=== PATIENT | male | born 1955 | race Caucasian/White ===

== ENCOUNTER 2019-06-25 08:43 | Outpatient (CLI) | payer OTHER ==
[~2019-06-25 08:43] MED LIST: KLONOPIN0.5 MG/TAB PO; LEXAPRO20 MG PO
== END 2019-06-25 08:50 | disposition home or self-care (01) ==
LOC: LAB 08:43
DX: E11.9 Type 2 diabetes mellitus without complications (principal); I10 Essential (primary) hypertension; E03.8 Other specified hypothyroidism; E78.2 Mixed hyperlipidemia; N40.0 Benign prostatic hyperplasia without lower urinary tract symptoms

== ENCOUNTER 2019-08-09 17:58 | Emergency (ER) | payer OTHER ==
[~2019-08-09] VITALS: Ht 175.3 cm; Wt 90.7 kg
== END 2019-08-09 20:06 | disposition home or self-care (01) ==
LOC: ER 17:58
DX: J06.9 Acute upper respiratory infection, unspecified (principal)

== ENCOUNTER 2020-07-30 06:20 | Day surgery (SDC) | payer OTHER | END 2020-07-30 12:40 | disposition home or self-care (01) | LOC: AMB-ENDOS 06:20 | PROVIDERS: ATTEND Colon & Rectal Surgery | DX: C19 Malignant neoplasm of rectosigmoid junction (principal); K64.1 Second degree hemorrhoids; Z12.11 Encounter for screening for malignant neoplasm of colon; Z20.822 Contact with and (suspected) exposure to COVID-19 ==

== ENCOUNTER 2020-08-05 18:36 | Emergency (ER) | payer OTHER ==
[~2020-08-05] VITALS: Ht 175.3 cm; Wt 83.9 kg
[2020-08-05] MEDS ORDERED: LORAZEPAM1 MG PO (18:48)
== END 2020-08-05 22:23 | disposition home or self-care (01) ==
LOC: ER 18:36
DX: R07.89 Other chest pain (principal); T50.Z95A Adverse effect of other vaccines and biological substances, initial encounter

== ENCOUNTER 2020-08-29 05:58 | Emergency (ER) | payer OTHER ==
[~2020-08-29] VITALS: Ht 175.3 cm; Wt 83.9 kg
[~2020-08-29 05:58] MED LIST changes: +LORAZEPAM1 MG PO
[2020-08-29] MEDS ORDERED: SYNTHROID50 MCG (06:09)
== END 2020-08-29 14:57 | disposition home or self-care (01) ==
LOC: ER 05:58
DX: N39.0 Urinary tract infection, site not specified (principal); K64.8 Other hemorrhoids; K57.30 Diverticulosis of large intestine without perforation or abscess without bleeding; B96.29 Other Escherichia coli [E. coli] as the cause of diseases classified elsewhere; R31.29 Other microscopic hematuria; R10.32 Left lower quadrant pain

== ENCOUNTER 2020-09-02 11:15 | Inpatient (IN) | payer OTHER ==
[~2020-09-02] VITALS: Ht 175.3 cm; Wt 83.9 kg
[~2020-09-02 11:15] MED LIST changes: +SYNTHROID50 MCG
[2020-09-02] MEDS ORDERED: LORAZEPAM0.5 MG PO (14:33)
[2020-09-07] MEDS ORDERED: PANTOPRAZOLE SO40 MG (08:19)
[2020-09-07] MEDS ORDERED: LEVOFLOXACIN750 MG (08:21)
== END 2020-09-10 17:54 | disposition home or self-care (01) | DRG 331 ==
LOC: ADM 11:15 → EDSTATUS 11:15 → O/R 09-07 06:15 → SURG 09-07 06:15 → SURH 09-07 11:15 → SURG 09-07 13:24
PROVIDERS: ADMIT Colon & Rectal Surgery; ATTEND Colon & Rectal Surgery
PROC: 0DBN4ZZ Excision of Sigmoid Colon, Percutaneous Endoscopic Approach (ICD-10-PCS; 2020-09-07)
PROC: 07BB4ZZ Excision of Mesenteric Lymphatic, Percutaneous Endoscopic Approach (ICD-10-PCS; 2020-09-07)
PROC: 0DTP4ZZ Resection of Rectum, Percutaneous Endoscopic Approach (ICD-10-PCS; principal; 2020-09-07 13:15)
DX: C19 Malignant neoplasm of rectosigmoid junction (principal)

== ENCOUNTER 2020-10-08 06:56 | Outpatient (CLI) | payer OTHER ==
[~2020-10-08 06:56] MED LIST changes: +LEVOFLOXACIN750 MG; +LORAZEPAM0.5 MG PO; +PANTOPRAZOLE SO40 MG
== END 2020-10-08 07:13 | disposition home or self-care (01) ==
LOC: LAB 06:56
PROVIDERS: ATTEND Internal Medicine
DX: C19 Malignant neoplasm of rectosigmoid junction (principal); C61 Malignant neoplasm of prostate

== ENCOUNTER 2020-10-08 08:42 | Outpatient (CLI) | payer OTHER | END 2020-10-08 09:05 | disposition home or self-care (01) | LOC: TOM 08:42 | PROVIDERS: ATTEND Internal Medicine | DX: C19 Malignant neoplasm of rectosigmoid junction (principal) ==

== ENCOUNTER 2020-11-02 07:53 | Outpatient (CLI) | payer OTHER | END 2020-11-02 07:55 | disposition home or self-care (01) | LOC: SONOGRAMA 07:53 → MAMO-SONO 08:30 | PROVIDERS: ATTEND Internal Medicine | DX: E04.1 Nontoxic single thyroid nodule (principal) ==

== ENCOUNTER → 2020-11-08 08:51 | Outpatient (CLI) | payer OTHER | END | disposition home or self-care (01) | LOC: LAB 08:51 | PROVIDERS: ATTEND Internal Medicine | DX: C19 Malignant neoplasm of rectosigmoid junction (principal); N40.1 Benign prostatic hyperplasia with lower urinary tract symptoms ==

== ENCOUNTER 2020-12-02 09:39 | Outpatient (CLI) | payer OTHER | END 2020-12-02 09:41 | disposition home or self-care (01) | LOC: SONOGRAMA 09:39 | PROVIDERS: ATTEND Pathology Anatomic Pathology & Clinical Pathology | DX: E04.1 Nontoxic single thyroid nodule (principal); E07.89 Other specified disorders of thyroid; D34 Benign neoplasm of thyroid gland ==

== ENCOUNTER 2021-07-06 10:24 | Outpatient (CLI) | payer OTHER | END 2021-07-06 10:35 | disposition home or self-care (01) | LOC: SONOGRAMA 10:24 | PROVIDERS: ATTEND Internal Medicine | DX: E04.1 Nontoxic single thyroid nodule (principal) ==

== ENCOUNTER 2021-10-23 11:56 | Emergency (ER) | payer OTHER ==
[~2021-10-23] VITALS: Ht 175.3 cm; Wt 88.5 kg
[2021-10-23] MEDS ORDERED: ATIVAN1 M1 PO (12:36)
== END 2021-10-23 16:29 | disposition home or self-care (01) ==
LOC: ER 11:56
DX: U07.1 COVID-19 (principal)

== ENCOUNTER 2025-01-11 10:28 | Emergency (ER) | payer OTHER ==
[~2025-01-11] VITALS: Ht 175.3 cm; Wt 88.5 kg
[~2025-01-11 10:28] MED LIST changes: +ATIVAN1 M1 PO
[2025-01-11] MEDS ORDERED: CETIRIZINE HCL 5 MG/5 ML ML PO ONE (14:45)
[2025-01-11 15:07] LABS: BASO % 1.5 % (0.1-1.2); EOS # 0.21 (0.04-0.54); EOS % 3.9 % (0.7-7.0); LYMPH # 1.64 (1.18-3.74); LYMPH % 30.2 % (19.3-53.1); MEAN PLATELET VOLUME 9.90 fl (9.4-12.4); MONO # 0.89 (0.24-0.82); NEUT # 2.60 (1.56-6.13); NEUT % 47.8 % (34.0-71.1); RED CELL DISTRIBUTION WIDTH 13.2 % (11.6-14.4)
[2025-01-11 15:14] LABS: MONO % 16.4 % (4.7-12.5)
[2025-01-11] MEDS ORDERED: ZYRTEC10 MG PO (15:51)
[2025-01-11] MEDS ORDERED: CLOTRIMAZOLE-BE15 GM TOP (15:51)
== END 2025-01-11 16:00 ==
LOC: ER 11:10
PROVIDERS: Preventive Medicine Public Health & General Preventive Medicine
DX: L28.2 Other prurigo (principal); Z85.038 Personal history of other malignant neoplasm of large intestine; I10 Essential (primary) hypertension; E03.8 Other specified hypothyroidism